=== PATIENT | female | born 1960 | race Caucasian/White ===

== ENCOUNTER 2016-10-30 11:33 | Emergency (ER) | payer OTHER ==
[~2016-10-30] VITALS: Ht 160 cm; Wt 65.3 kg
[~2016-10-30 11:33] MED LIST: DIOV160T60 PO; GLUCTAB PO; LEXA10TA PO; NAPR500 PO
[2016-10-30 11:39] VITALS: BP 134/65; PULSE 80; RESP 16; TEMP 97.7; O2SAT 98
[2016-10-30] MEDS ORDERED: METF1000 PO (11:47)
[2016-10-30] MEDS ORDERED: LOSA100T PO (11:47)
[2016-10-30] MEDS ORDERED: FENO145T2 PO (11:47)
--- NOTE | 2016-10-30 12:24 | PD ---
HPI Chief Complaint: Musculoskeletal Complaint Time Seen by Provider: 12:10 Travel History International Travel<30 days: No Contact w/Intl Traveler<30days: No Traveled to known affect area: No History of Present Illness HPI 56-year-old female presents to the emergency room for evaluation of left-sided rib pain after falling on a cooler 3 days ago. Patient states she tripped and then fell forward striking her breast bone and ribs on the cooler directly in the front of her. She had immediate pain. Since then she has had pain with breathing, slight cough. She has been taking Tylenol without significant relief in symptoms. She denies fever. No chronic medical conditions other than diabetes. Denies abdominal pain, vomiting, and nausea. PFSH Social History Tobacco Use: No Allergies-Medications (Allergen,Severity, Reaction): Coded Allergies: No Known Allergies (Verified , 10/30/16) Reported Meds & Prescriptions Reported Meds & Active Scripts Active Reported Metformin (Metformin HCl) 1,000 Mg Tab 1,000 Mg PO BIDPC With meals Review of Systems Except as stated in HPI: all other systems reviewed are Neg Physical Exam Narrative GENERAL: Well-nourished, well-developed female in no acute distress. Afebrile. Ambulatory. SKIN: Focused skin assessment warm/dry. HEAD: Normocephalic. EYES: No scleral icterus. No injection or drainage. NECK: Supple, trachea midline. No JVD or lymphadenopathy. CARDIOVASCULAR: Regular rate and rhythm without murmurs, gallops, or rubs. RESPIRATORY: Breath sounds equal bilaterally. No accessory muscle use. No crackles, rales, wheezes, or rhonchi appreciated. CHEST: Extreme tenderness to palpation of the sternum and left anterior rib #7. No obvious deformity or crepitance. No retractions or use of accessory muscles. Data Data Last Documented VS Vital Signs Date Time Temp Pulse Resp B/P (MAP) Pulse Ox O2 Delivery O2 Flow Rate FiO2 10/30/16 11:47 16 10/30/16 11:39 97.7 80 134/65 (88) 98 Orders Orders Ribs, Uni (W/Exp Cxr-Min 3vw) (10/30/16 ) [facility] Medical Decision Making Medical Screen Exam Complete: Yes Emergency Medical Condition: Yes Medical Record Reviewed: Yes Differential Diagnosis Fracture, contusion, strain, sprain Narrative Course 56-year-old female presents to the emergency room for evaluation of left anterior rib pain and sternum pain after falling forward on a cooler 3 days ago. Since then she has had persistent pain in the sternum radiating into the left anterior rib cage. Reports associated mild cough. He denies abdominal pain. Denies fever, chills, nausea, and vomiting. Lung sounds clear and equal bilaterally. There is extreme tenderness to palpation of the left lateral sternum and anterior rib #7. No obvious deformity or crepitus. Chest x-ray shows no acute bony abnormality or pneumothorax. Patient given incentive spirometer discharged with prescription for ibuprofen. Told to follow-up with her primary care physician or return for worsening symptoms. She understands and agrees to plan. Diagnosis Primary Impression: Contusion of rib on left side Qualified Codes: S20.212A - Contusion of left front wall of thorax, initial encounter Referrals: Primary Care Physician Additional Instructions: Rest and drink plenty of fluids. Take ibuprofen with food as directed, as needed for pain. Apply ice to the affected area for 20 minutes at a time, as needed for pain and swelling. Follow-up with a primary care physician. Return to the emergency room for worsening symptoms. Med/Other Pt SpecificInfo: Prescription(s) given Disposition: 01 DISCHARGE HOME Condition: Stable Ofelia Carver Oct 30, 2016 12:24
--- NOTE | 2016-10-30 12:49 | RADRPT ---
EXAM DATE/TIME: 10/30/2016 12:28 [facility] COMPARISON: No previous studies available for comparison. INDICATIONS : Left anterior rib pain after falling onto a cooler while carrying it. MEDICAL HISTORY : None. SURGICAL HISTORY : Cholecystectomy. ENCOUNTER: Initial ACUITY: 3 days PAIN SCORE: 9/10 LOCATION: Left anterior ribs FINDINGS: Multiple views of the left ribs were performed. There is no evidence of displaced fracture. No dest ructive lesions or areas of periosteal thickening are seen. Expiratory view of the chest is negative for pneumothorax. The mediastinal structures are midline. CONCLUSION: No acute disease. Richi Gaston MD on October 30, 2016 at 12:47 Board Certified Radiologist. This report was verified electronically.
[2016-10-30] MEDS ORDERED: IBUP-232 PO (12:58)
== END 2016-10-30 13:38 | disposition home or self-care (01) ==
LOC: PHEFT 11:33
DX: S20.212A Contusion of left front wall of thorax, initial encounter (principal); R05 Cough; E11.9 Type 2 diabetes mellitus without complications; Z79.84 Long term (current) use of oral hypoglycemic drugs; W01.198A Fall on same level from slipping, tripping and stumbling with subsequent striking against other object, initial encounter
CPT/HCPCS: 71101; 94150; 99283